=== PATIENT | female | born 1945 | race Caucasian/White ===

== ENCOUNTER 2024-06-29 15:33 | Outpatient (AMB) | payer MEDICARE, MEDICAID, SELFPAY ==
--- NOTE | 2024-06-29 15:35 | MHC.PC.OV ---
Vital Signs 06/29/24 15:51 Height 5 ft 1 in Weight 166 lb 8 oz BMI 31.5 BP 131/60 Blood Pressure Location Rt brachial Position Sitting Respiration 16 Pulse 76 Pulse Source Pulse Oximeter Temp 97.7 F Temp Source Oral Pulse Oximetry (%) 99 Oxygen Delivery Method Room Air Intake Visit Reasons: EST CARE/DM/BLOOD PRESSURE Intake Note: patient here for new patient visit Chief Optometry Service Required: No Is last menstrual period known: No Post menopausal: No Patient : No Allergies amoxicillin Adverse Reaction (Mild, Verified 06/29/24 15:39) Nausea Tobacco use date assessed: 06/29/24 Fall risk assessment: No Falls in past year Last assessed Fall Risk: 06/29/24 Dental Screening Dental Screen Date: 06/29/24 Did you have a dental visit in the last 12 months?: No Did you have a dental problem in the last 6 months where you did not have access to dental care?: No Was dental information given to patient?: Patient has dentist HPI HPI Comments History of Present Illness Details 78-year-old female with a past medical history of type 2 diabetes, nephrolithiasis, CKD stage 3, hyperlipidemia, hypertension, obesity presents to [facility]. Transfer records unavailable at this time. Patient reports her PCP office referred her to [facility] [place] for CKD stage 3, but she does not necessarily want to go to that appointment if it is unnecessary. Patient was told by Urology kidney function has been stable. She does not recall last A1c. She does not check her blood sugars regularly or have a glucometer. She would like 1 sent to the pharmacy. She takes metformin a 1000 mg twice daily for diabetes. Nephrolithiasis-followed by [facility]. She is on allopurinol. Hypertension is treated with valsartan and metoprolol. Her blood pressure today is 131/60. Hyperlipidemia is treated with rosuvastatin and Zetia. Denies history of atherosclerotic disease. She has a murmur on exam. She does not recall being told this in the past. Denies chest pain or shortness of breath. Reports she went to the hospital last year when she thought she was having a heart attack, and the workup was negative. Chest pain did not return. Reports last colonoscopy was a couple years ago. She is unsure if mammo was up-to-date but says this will be in her records. Patient reports immunizations are up-to-date. ROS: Constitutional: No unexplained weight loss, fever, chills, fatigue or night sweats. Eyes: No vision changes, blurry vision, double vision, eye pain, eye redness, eye discharge. Respiratory: No shortness of breath, cough or sputum production. Cardiovascular: No chest pain, chest pressure or chest discomfort. No palpitations or pedal edema. Gastrointestinal: No anorexia, nausea, vomiting or diarrhea. No abdominal pain or blood in stool. Genitourinary: No dysuria, hematuria, urinary frequency. Physical exam: Constitutional: Alert, in no distress. Head: Normocephalic. Eyes: Pupils are equal, round and reactive to light. Extraocular muscles intact. Neck: Supple, Full range of motion. No lymphadenopathy. No palpable thyroid masses. Respiratory: Clear to auscultation. Cardiovascular: S1 S2 regular. 2/6 systolic murmur.. Extremities: Warm and well perfused. 1+ pedal edema bilaterally. Psychiatric: Normal mood and affect [facility] Medical History (Updated 06/29/24 @ 17:26 by CARI Tovar) Obesity Hyperlipidemia Essential hypertension Heart murmur CKD stage 3 due to type 2 diabetes mellitus Type II diabetes mellitus Kidney disease Diabetes High cholesterol High blood pressure Kidney stones Surgical History (Updated 06/29/24 @ 15:56 by Pamela Jain MA) H/O: hysterectomy Family History (Updated 06/29/24 @ 16:00 by Pamela Jain MA) Father High blood pressure Cardiovascular disease Sister Colon cancer Social History Housing: House Patient Tobacco Use Status: Never used Tobacco e-Cigarette/Vaping Use: Never Used Second Hand Smoke Exposure: No service: No Current occupational status: retired Cognitive needs: No Hearing needs: No Vision needs: Yes Questionnaire PHQ-9 Over the last 2 weeks, how often have you been bothered by any of the following problems? 1. Little interest or pleasure in doing things: not at all 2. Feeling down, depressed, or hopeless: not at all 3. Trouble falling or staying asleep, or sleeping too much: several days 4. Feeling tired or having little energy: several days 5. Poor appetite or overeating: several days 6. Feeling bad about yourself - or that you are a failure or have let yourself or your family down: not at all 7. Trouble concentrating on things, such as reading the newspaper or watching television: not at all 8. Moving or speaking so slowly that other people could have noticed. Or the opposite - being so fidgety or restless that you have been moving around a lot more than usual: not at all 9. Thoughts that you would be better off or of hurting yourself in some way: not at all Total score: 3 Depression Screening Interpretation: Negative Depression Screening Done: Yes 72595 - PHQ-9 Billing: Yes Source: Developed by Drs. Prasanna Myles, Irasema Muro, Jethro Barbour and colleagues, with an educational mariela from [employer]. Thrive Questionnaire Date Thrive assessed: 06/29/24 I am a: Patient What is your living situation today?: I have a steady place to live Within the past 12 months, did the food you bought not last and you didn't have the money to get more?: Sometimes True Within the past 12 months, did you worry whether your food would run out before you got money to buy more?: I choose not to answer this question Do you have trouble paying for medicines?: No Do you have trouble getting transportation to medical appointments?: No Do you have trouble paying your heating and electricity bill?: Yes Do you have trouble taking care of your child, family member or friend?: No Do you have trouble with day-to-day activities such as bathing, preparing meals, shopping, managing finances, etc.?: No Are you currently unemployed and looking for a job?: No Are you interested in more education?: No Please select the resources that you would like help with: None Currently or been in a relationship where the following occur: No concerns reported THRIVE Score: 2 AUDIT C Alcohol Use Questionnaire (AUDIT-C) 1. How often do you have a drink containing alcohol?: Never Total Score: 0 Score Reviewed/Action Taken: Yes ERIC-7 AMB Questionnaire ERIC-7 Date ERIC - 7 assessed: 06/29/24 Feeling nervous, anxious, or on edge: 0 = Not at all Not being able to stop or control worryin = Not at all Worrying too much about different things: 0 = Not at all Trouble relaxin = Not at all Being so restless that it is hard to sit still: 0 = Not at all Becoming easily annoyed or irritable: 0 = Not at all Feeling afraid as if something awful might happen: 0 = Not at all Total ERIC-7 score (0-4 normal; 5-9 mild; 10-14 moderate; 15-21 severe): 0 Source: Developed by Drs. Prasanna Myles, Irasema Muro, Jethro Barbour and colleagues, with an educational mariela from [employer]. ERIC-7 Assessment Billing ERIC-7 Assessment Tool: ERIC-7 Assessment 56807 Physical exam (Primary Care) Vital Signs: Last Vital Signs Temp 97.7 F 06/29/24 15:51 Pulse 76 06/29/24 15:51 Resp 16 06/29/24 15:51 BP 131/60 06/29/24 15:51 Pulse Ox 99 06/29/24 15:51 Oxygen Delivery Method Room Air 06/29/24 15:51 BMI result Body Mass Index 31.5 Tobacco/Smoking Status: Tobacco use Status Tobacco use date assessed 06/29/24 06/29/24 15:50 Patient Tobacco Use Status Never used Tobacco 06/29/24 15:50 e-Cigarette/Vaping Use Never Used 06/29/24 15:50 PHQ-9: PHQ-9 Score PHQ-9: Total score 3 06/29/24 16:03 Depression Screening Interpretation: Negative Thrive Assessment: Date of Thrive Assessment Date Thrive assessed 06/29/24 06/29/24 15:37 Currently or been in a relationship where the following occur: No concerns reported Coding Level of Care Code New Pt Level 4 (54774) Complex EM visit Add On G2211 Diagnoses Hyperlipidemia E78.5 Essential hypertension I10 Heart murmur R01.1 CKD stage 3 due to type 2 diabetes mellitus E11.22; N18.30 Type II diabetes mellitus E11.9 Additional Codes ERIC-7 Assessment Billing - ERIC-7 Assessment Tool: ERIC-7 Assessment [id number] ([id number]) PHQ-9 - 20572 - PHQ-9 Billing: Yes ([id number]) Assessment & Plan Assessment & Plan (1) Hyperlipidemia: Code(s): E78.5 - Hyperlipidemia, unspecified Category: Medical Plan: Continue rosuvastatin and Zetia. Check lipid profile. Recommended Mediterranean diet. (2) Essential hypertension: Code(s): I10 - Essential (primary) hypertension Category: Medical Plan: Continue valsartan and metoprolol. Recommended low-sodium diet and avoidance of caffeine. Encouraged weight loss. (3) Heart murmur: Code(s): R01.1 - Cardiac murmur, unspecified Category: Medical Plan: Check echocardiogram. (4) CKD stage 3 due to type 2 diabetes mellitus: Code(s): E11.22 - Type 2 diabetes mellitus with diabetic chronic kidney disease; N18.30 - Chronic kidney disease, stage 3 unspecified Category: Medical Plan: Check urine for microalbumin and renal function test. (5) Type II diabetes mellitus: Code(s): E11.9 - Type 2 diabetes mellitus without complications Category: Medical Plan: Complications of type 2 diabetes reviewed with the patient. Glucometer and supplies sent to pharmacy. Continue metformin a 1000 mg twice daily. Bring glucometer to visits. Check diabetic labs. Recommended annual eye exam. Plan Follow up in 3 months for type 2 diabetes. Orders: Orders Vitamin B12 Today E11.22 - Type 2 diabetes mellitus with diabetic chronic kidney disease, E11.9 - Type 2 diabetes mellitus without complications, N18.30 - Chronic kidney disease, stage 3 unspecified, Z91.89 - Other specified personal risk factors, not elsewhere classified Vitamin D 25-OH (D2 and D3) Today E11.22 - Type 2 diabetes mellitus with diabetic chronic kidney disease, E11.9 - Type 2 diabetes mellitus without complications, M85.80 - Other specified disorders of bone density and structure, unspecified site, N18.30 - Chronic kidney disease, stage 3 unspecified Complete Blood Count no Diff Today E11.22 - Type 2 diabetes mellitus with diabetic chronic kidney disease, E11.9 - Type 2 diabetes mellitus without complications, N18.30 - Chronic kidney disease, stage 3 unspecified Microalbumin, Random (w Creat) Today E11.22 - Type 2 diabetes mellitus with diabetic chronic kidney disease, E11.9 - Type 2 diabetes mellitus without complications, N18.30 - Chronic kidney disease, stage 3 unspecified Hemoglobin A1c Today E11.22 - Type 2 diabetes mellitus with diabetic chronic kidney disease, E11.9 - Type 2 diabetes mellitus without complications, N18.30 - Chronic kidney disease, stage 3 unspecified Lipid Panel Today E11.22 - Type 2 diabetes mellitus with diabetic chronic kidney disease, E11.9 - Type 2 diabetes mellitus without complications, E78.5 - Hyperlipidemia, unspecified, N18.30 - Chronic kidney disease, stage 3 unspecified Comprehensive Met. Panel Today E11.22 - Type 2 diabetes mellitus with diabetic chronic kidney disease, E11.9 - Type 2 diabetes mellitus without complications, N18.30 - Chronic kidney disease, stage 3 unspecified CA echo transthoracic complete Today I10 - Essential (primary) hypertension, R01.1 - Cardiac murmur, unspecified Medications: New lancets ([employer] Delica Plus Lancet) Use as directed to check blood glucose once daily. 100 ea 5RF blood sugar diagnostic ([employer] Verio test strips) Use as directed to check blood glucose once daily. 100 ea 5RF blood-glucose meter ([employer] Verio Flex Meter) Use as directed to check blood glucose once daily for Type II diabetes mellitus. 1 ea 0RF
[2024-06-29 15:51] VITALS: BP 131/60; PULSE 76; RESP 16; TEMP 36.5; O2SAT 99; BMI 31.5
--- OUTSIDE RECORDS SUMMARY | 2024-06-29 17:47 | XMS_ITS | Clinical Summary ---
Author Organization [facility] Address [address] [place] [address] Phone Care Team Providers Care Superintendent Cemetery Name Role Phone Tio Melendez Primary Care Provider Encounters Date Type Department Care Team Description 05/24/2024 Documentation Only [facility] [address] [place] [address] Amy Rosas MA from Last 3 Months Social History Tobacco Use Types Packs/Day Years Used Date Smoking Tobacco: Never Assessed Comments Unknown Sex and Gender Information Value Date Recorded Sex Assigned at Not on file Legal Sex Female 2:33 PM EST Gender Identity Not on file Sexual Orientation Not on file Plan of Treatment Upcoming Encounters Date Type Department Care Team (Late st Contact Info) Description 10/11/2024 4:00 PM EDT Office Visit [facility] [address] [place] [address] [address]imi Almazan [address] [place] [address] Health Maintenance Due Date Last Done Comments Diabetes: Hemoglobin A1C 05/24/2024 Diabetes: Ophthalmology Exam 05/24/2024 Diabetes: Pedal Pulse Checked 05/24/2024 Diabetes: Sensory Foot Exam 05/24/2024 Diabetes: Visual Foot Exam 05/24/2024 Influenza Vaccine (Season Ended) 2024 Pneumococcal Vaccine: 50+ Years Completed 02/01/2020, 05/02/2010, 02/04/2005 Hepatitis B Vaccine Aged Out No longe r eligible based on patient's age to complete this topic Insurance [facility] Member Subscriber Plan / Payer (Ef fective 2024-Present) Name:Toney Lanza Relation to Subscriber:Self Name:Toney Lanza Payer ID:Not on file Type:Not on file Address: [address] [phone] Medicaid [place] Care Teams Superintendent Cemetery Relationship Specialty Start Date End Date Tio Melendez [address] [place] [id number] PCP - General 06/19/24
--- OUTSIDE RECORDS SUMMARY | 2024-06-29 17:47 | XMS_ITS | Encounter Summary ---
Author Organization [facility] [place] Address [address] [place] [address] Phone Care Team Providers Care Social Security Assessor Name Role Phone Tio Melendez Primary Care Provider Encounter Details Date Type Department Care Team (Late st Contact Info) Description 05/24/2024 Documentation Only [facility] [address] [place] [address] [place] [address] [place] [phone] Social History Tobacco Use Types Packs/Day Years Used Date Smoking Tobacco: Never Assessed Comments Unknown Sex and Gender Information Value Date Recorded Sex Assigned at Not on file Legal Sex Female 2:33 PM EST Gender Identity Not on file Sexual Orientation Not on file documented as of this encounter Plan of Treatment Upcoming Encounters Date Type Department Care Team (Late st Contact Info) Description 10/11/2024 4:00 PM EDT Office Visit [facility] [address] [place] [address] Yimi Almazan [address] [place] [phone] documented as of this encounter Visit Diagnoses Not on filedocumented in this encounter Care Teams Social Security Assessor Relationship Specialty Start Date End Date Tio Melendez [address] [place], [place] [phone] PCP - General 06/19/24 documented as of this encounter
== END 2024-06-29 16:20 | disposition home or self-care (01) ==
LOC: HO.HMCFM 15:34
PROVIDERS: PCP Physician Assistant Medical; Visit Provider Physician Assistant Medical
DX: E78.5 Hyperlipidemia, unspecified (principal); I10 Essential (primary) hypertension; R01.1 Cardiac murmur, unspecified; E11.22 Type 2 diabetes mellitus with diabetic chronic kidney disease; N18.30 Chronic kidney disease, stage 3 unspecified

== ENCOUNTER → 2024-06-29 15:33 | Outpatient (BNVA) | payer MEDICARE, MEDICAID, SELFPAY | PROVIDERS: PCP Physician Assistant Medical; Visit Provider Physician Assistant Medical | DX: E11.22 Type 2 diabetes mellitus with diabetic chronic kidney disease (principal); I12.9 Hypertensive chronic kidney disease with stage 1 through stage 4 chronic kidney disease, or unspecified chronic kidney disease; E78.5 Hyperlipidemia, unspecified; N18.30 Chronic kidney disease, stage 3 unspecified; R01.1 Cardiac murmur, unspecified; E66.9 Obesity, unspecified; Z68.31 Body mass index [BMI] 31.0-31.9, adult; Z87.442 Personal history of urinary calculi | CPT/HCPCS: 96127; 99202 ==

== ENCOUNTER 2024-08-28 09:55 | Outpatient (AMB) | payer MEDICARE, SELFPAY ==
--- NOTE | 2024-08-28 10:03 | A.OFFPC_ITS ---
Vital Signs 08/28/24 10:07 Height 5 ft 1 in Weight 160 lb BMI 30.2 BP 132/80 Blood Pressure Location Rt brachial Position Sitting Respiration 16 Pulse 64 Pulse Source Pulse Oximeter Temp 97.9 F Temp Source Temporal Artery Scan Pulse Oximetry (%) 98 Oxygen Delivery Method Room Air Intake Visit Reasons: 2-3 weeks for weight loss evaluation Intake Note: Toney presents in the office today for a diabetes check in. Allergies amoxicillin Adverse Reaction (Mild, Verified 08/28/24 10:05) Nausea Tobacco use date assessed: 08/28/24 Fall risk assessment: No Falls in past year Last assessed Fall Risk: 08/28/24 Dental Screening Dental Screen Date: 08/28/24 Did you have a dental visit in the last 12 months?: No Did you have a dental problem in the last 6 months where you did not have access to dental care?: No Was dental information given to patient?: Patient has dentist HPI HPI Comments History of Present Illness Details 78-year-old female with a past medical h istory of type 2 diabetes, nephrolithiasis, CKD stage 3, hyperlipidemia, hypertension and obesity presents weight loss. She endorses 30 lb weight loss since January 2024. She also notices stools are less warmth and more frequent. She has 2 per day. Her appetite is decreased. She endorses fatigue, but she says she does not always sleep well in his still busy getting things done. She has no dietary restrictions. Denies blood or mucus in stools. No abdominal pain. Reports last colonoscopy was with Dr. Montemayor a few years ago at [facility], and by her report it was normal. She has lost 6 lb since her visit with me in June this year. She did not have her lab work completed yet. We previously discussed that her PCP referred her to [facility] in [place] for CKD stage 3. Patient was not sure she needed to go because she was told by Urology her kidney function has been stable. Type 2 diabetes-she is checking her blood sugars, and they are in the target range aside from 1 that was 185 postprandially. She is taking metformin 1000 mg twice a day. Nephrolithiasis-followed by [facility]. She is on allopurinol and potassium citrate. Hypertension is treated with valsartan and metoprolol. She had an echocardiogram on 08/10/2024 demonstrating left ventricular ejection fraction 55-60%, trace pulmonic regurgitation and mild tricuspid valve regurgitation. Hyperlipidemia is treated with rosuvastatin and Zetia. Denies history of atherosclerotic disease. Denies chest pain or shortness of breath. ROS: Constitutional: No fevers, chills, night sweats . See HPI Eyes: No vision changes, blurry vision, double vision, eye pain, eye redness, eye discharge. Respiratory: No shortness of breath, cough or sputum production. Cardiovascular: No chest pain, chest pressure or chest discomfort. No palpitations or pedal edema. Gastrointestinal: No nausea, vomiting, blood in stools or abdominal pain. See HPI. Genitourinary: No dysuria, hematuria, urinary frequency. Neurologic: No headache, dizziness, syncope Hematologic/Lymphatics: No bleeding or bruising. No painful lymph nodes. Skin: No rash Endocrine: No cold or heat intolerance. No polyuria or polydipsia. Psychiatric: No depression or anxiety Physical exam: Constitutional: Alert, in no distress. Head: Normocephalic. Eyes: Pupils are equal, round and reactive to light. Extraocular muscles intact. Ear, Nose and Throat: Canals clear. TMs normal. Normal nasal mucosa. No nasal discharge. No oral lesions. Neck: Supple, Full range of motion. No lymphadenopathy. No palpable thyroid masses. Respiratory: Clear to auscultation. Cardiovascular: S1 S2 regular. 2/6 systolic murmur Gastrointestinal: Abdomen soft, non-tender, non-distended. Normal bowel sounds. No palpable masses. Neurologic: No focal neurological deficits. Skin: No rashes Extremities: Warm and well perfused. 1+ bilateral pedal edema. Psychiatric: Normal mood and affect [facility] Medical History (Updated 08/28/24 @ 10:37 by CARI Tovar) Mild tricuspid regurgitation Weight loss Obesity Hyperlipidemia Essential hypertension Heart murmur CKD stage 3 due to type 2 diabetes mellitus Type II diabetes mellitus Kidney disease Diabetes High cholesterol High blood pressure Kidney stones Surgical History (Updated 06/29/24 @ 15:56 by Pamela Jain MA) H/O: hysterectomy Family History Father High blood pressure Cardiovascular disease Sister Colon cancer Social History (Updated 08/28/24 @ 10:07 by nAny Doe MA) Housing: House Alcohol intake: never Patient Tobacco Use Status: Never used Tobacco e-Cigarette/Vaping Use: Never Used Second Hand Smoke Exposure: No service: No Current occupational status: retired Cognitive needs: No Hearing needs: No Vision needs: Yes Questionnaire Thrive Questionnaire Date Thrive assessed: 06/29/24 I am a: Patient What is your living situation today?: I have a steady place to live Within the past 12 months, did the food you bought not last and you didn't have the money to get more?: Sometimes True Within the past 12 months, did you worry whether your food would run out before you got money to buy more?: I choose not to answer this question Do you have trouble paying for medicines?: No Do you have trouble getting transportation to medical appointments?: No Do you have trouble paying your heating and electricity bill?: Yes Do you have trouble taking care of your child, family member or friend?: No Do you have trouble with day-to-day activities such as bathing, preparing meals, shopping, managing finances, etc.?: No Are you currently unemployed and looking for a job?: No Are you interested in more education?: No Please select the resources that you would like help with: None Currently or been in a relationship where the following occur: No concerns reported THRIVE Score: 2 ERIC-7 AMB Questionnaire ERIC-7 Date ERIC - 7 assessed: 06/29/24 Source: Developed by Drs. Prasanna Myles, Irasema Muro, Jethro Barbour and colleagues, with an educational mariela from [employer] by [employer]. Physical exam (Primary Care) Vital Signs: Last Vital Signs Temp 97.9 F 08/28/24 10:07 Pulse 64 08/28/24 10:07 Resp 16 08/28/24 10:07 BP 132/80 08/28/24 10:07 Pulse Ox 98 08/28/24 10:07 Oxygen Delivery Method Room Air 08/28/24 10:07 BMI result Body Mass Index 30.2 Tobacco/Smoking Status: Tobacco use Status Tobacco use date assessed 08/28/24 08/28/24 10:10 Patient Tobacco Use Status Never used Tobacco 08/28/24 10:10 e-Cigarette/Vaping Use Never Used 08/28/24 10:10 Thrive Assessment: Date of Thrive Assessment Date Thrive assessed 06/29/24 08/28/24 10:10 Currently or been in a relationship where the following occur: No concerns reported Coding Level of Care Code Est Pt Level 4 (41332) Complex EM visit Add On G2211 Diagnoses Weight loss R63.4 Type II diabetes mellitus E11.9 CKD stage 3 due to type 2 diabetes mellitus E11.22; N18.30 Essential hypertension I10 Hyperlipidemia E78.5 Mild tricuspid regurgitation I07.1 Assessment & Plan Assessment & Plan (1) Weight loss: Code(s): R63.4 - Abnormal weight loss Category: Medical Plan: We discussed the differential for weight loss which is concerning for malignancy, autoimmune disease, colitis, anxiety or depression. Referred urgently to Gastroenterology. Request colonoscopy record. She will have lab work done today. I will request CT abdomen and pelvis, but I need to have her renal function assessed 1st to determine if she can have contrast. (2) Type II diabetes mellitus: Code(s): E11.9 - Type 2 diabetes mellitus without complications Category: Medical Plan: Well-controlled. Continue home glucose monitoring. Continue metformin. (3) CKD stage 3 due to type 2 diabetes mellitus: Code(s): E11.22 - Type 2 diabetes mellitus with diabetic chronic kidney disease; N18.30 - Chronic kidney disease, stage 3 unspecified Category: Medical Plan: Check urine for microalbumin and renal function test. Avoid nephrotoxic medications. (4) Essential hypertension: Code(s): I10 - Essential (primary) hypertension Category: Medical Plan: Continue valsartan and metoprolol. Recommended low-sodium diet and avoidance of caffeine. (5) Hyperlipidemia: Code(s): E78.5 - Hyperlipidemia, unspecified Category: Medical Plan: Continue rosuvastatin and Zetia. Check lipid profile. Recommended Mediterranean diet. (6) Mild tricuspid regurgitation: Code(s): I07.1 - Rheumatic tricuspid insufficiency Category: Medical Plan: Plan to repeat echocardiogram in 1 year or sooner if the patient develops concerning symptoms. Plan Schedule follow up in 2 months. Orders: Orders TSH reflex Free T4 08/28/24 R63.4 - Abnormal weight loss IRON PROFILE 08/28/24 D64.9 - Anemia, unspecified, R63.4 - Abnormal weight loss Amylase 08/28/24 R63.4 - Abnormal weight loss Ferritin 08/28/24 D64.9 - Anemia, unspecified, R63.4 - Abnormal weight loss Complete Blood Count Auto Diff 08/28/24 R63.4 - Abnormal weight loss Lipase 08/28/24 R63.4 - Abnormal weight loss Erythrocyte Sedimentation Rate 08/28/24 E11.22 - Type 2 diabetes mellitus with diabetic chronic kidney disease, E11.9 - Type 2 diabetes mellitus without complications, E78.5 - Hyperlipidemia, unspecified, I10 - Essential (primary) hypertension, N18.30 - Chronic kidney disease, stage 3 unspecified, R63.4 - Abnormal weight loss Referrals Gastroenterology Referral R19.5 - Other fecal abnormalities, R63.4 - Abnormal weight loss
[2024-08-28 10:07] VITALS: BP 132/80; PULSE 64; RESP 16; TEMP 36.6; O2SAT 98; BMI 30.2
--- OUTSIDE RECORDS SUMMARY | 2024-08-28 10:46 | XMS_ITS | Encounter Summary ---
Author Organization [facility], Address [address] [place] [address] Phone Care Team Providers Care Rehab Spec Name Role Phone Tio Melendez Primary Care Provider Encounter Details Date Type Department Care Team (Late st Contact Info) Description 05/24/2024 Documentation Only [facility] [address] [place] [address] [place] [address] [place] [phone] Social History Tobacco Use Types Packs/Day [...] Visit [facility] [address] [place] [address] Yimi Almazan [address] [place] [phone] documented as of this encounter Visit Diagnoses Not on filedocumented in this encounter Care Teams Rehab Spec Relationship Specialty Start Date End Date Tio Melendez [address] [place], [place] [id number] PCP - General 06/19/24 documented as of this encounter
== END 2024-08-28 10:50 | disposition home or self-care (01) ==
LOC: HO.HMCFM 09:56
PROVIDERS: PCP Physician Assistant Medical; Visit Provider Physician Assistant Medical
DX: R63.4 Abnormal weight loss (principal); E11.22 Type 2 diabetes mellitus with diabetic chronic kidney disease; N18.30 Chronic kidney disease, stage 3 unspecified; I10 Essential (primary) hypertension; E78.5 Hyperlipidemia, unspecified; I07.1 Rheumatic tricuspid insufficiency

== ENCOUNTER 2024-08-28 11:06 | Outpatient (REF) | payer MEDICARE, OTHER, SELFPAY ==
[2024-08-28 14:07] LABS: MANUAL DIFF FLAG NO
[2024-08-28 14:29] LABS: Basophils Percent Auto 0.7 % (0-2); Eosinophils Absolute Auto 0.2 X10*3/uL (0.0-0.4); Eosinophils Percent Auto 2.6 % (0-4); Hematocrit 38.1 % (37.0-47.0); Hemoglobin 12.3 g/dl (12.0-16.0); Imm Gran Abs Auto 0.01 X10*3/uL (0.00-0.03); Imm Gran Pct Auto 0.2 % (0.0-0.4); Lymphocytes Absolute Auto 1.7 X10*3/uL (1.2-4.9); Lymphocytes Percent Auto 29.3 % (20-40); Mean Corpuscular HGB Conc 32.3 g/dl (31.0-35.0); Mean Corpuscular Hemoglobin 30.8 pg (27.0-33.0); Mean Corpuscular Volume 95.5 fL (80.0-98.0); Mean Platelet Volume 10.9 fL (9.4-12.3); Monocytes Absolute Auto 0.5 X10*3/uL (0.1-1.2); Monocytes Percent Auto 8.3 % (2-11); Neutrophils Absolute Auto 3.4 x10*3/uL (2.0-8.3); Neutrophils Percent Auto 58.9 % (45-73); Platelet Count 201 X10*3/uL (160-400); Red Blood Count 3.99 X10*6/uL (4.20-5.50); Red Cell Distribution Width 12.6 % (11.0-16.0); White Blood Count 5.8 X10*3/uL (4.8-10.8)
[2024-08-28 14:47] LABS: Estimated Average Glucose 120 mg/dL; Hemoglobin A1c % 5.8 % (<6.0)
[2024-08-28 14:51] LABS: Alanine Aminotransferase 37 U/L (0-31); Albumin Level 4.4 g/dL (3.5-5.0); Alkaline Phosphatase 65 U/L (39-117); Amylase 84 U/L (28-100); Anion Gap 13 (12-20); Aspartate Amino Transferase 33 U/L (5-31); Bilirubin Total 1.2 mg/dL (0.0-1.0); Blood Urea Nitrogen 24 mg/dL (9-16); Calcium 10.5 mg/dL (8.4-10.2); Carbon Dioxide 33 mmol/L (22-29); Chloride 104 mmol/L (96-108); Cholesterol 106 mg/dL (<200); Estimated Glomerular Filt Rate 39; Glucose Random 89 mg/dL (60-115); HDL Cholesterol 40 mg/dL (>40); Iron 66 mcg/dL (30-160); LDL Cholesterol Calculated 39 mg/dL (<100); Lipase 32 U/L (8-78); Percent Iron Saturation 20 % (15-50); Potassium 4.3 mmol/L (3.3-5.1); Sodium 146 mmol/L (135-145); Total Iron Binding Capacity 326 mcg/dL (228-428); Total Protein 7.1 g/dL (6.5-8.0); Triglycerides 138 mg/dL (<150); Unsaturated Iron Binding 260 ug/dL
[2024-08-28 15:08] LABS: Vitamin B12 1531 pg/mL (200-900)
[2024-08-28 15:10] LABS: Ferritin 82 ng/mL (10-250); TSH reflex Free T4 1.65 uIU/mL (0.32-4.0)
[2024-08-28 15:30] LABS: Erythrocyte Sedimentation Rate 22 MM/HR (0-20)
[2024-08-28 18:12] LABS: Creatinine Urine 127.38 mg/dL; Microalbum/Creatinine Ratio Ur 305.3 ug/mg cr (<30)
[2024-09-01 21:54] LABS: Vitamin D 25-OH, D2 <4 ng/mL; Vitamin D 25-OH, D3 52 ng/mL; Vitamin D 25-OH, Total 52 ng/mL (30-100)
== END 2024-08-28 11:07 | disposition home or self-care (01) ==
LOC: HO.WFDLDS 11:06
PROVIDERS: Visit Provider Physician Assistant Medical
DX: R63.4 Abnormal weight loss (principal); Z68.30 Body mass index [BMI] 30.0-30.9, adult; E11.22 Type 2 diabetes mellitus with diabetic chronic kidney disease; I12.9 Hypertensive chronic kidney disease with stage 1 through stage 4 chronic kidney disease, or unspecified chronic kidney disease; N18.30 Chronic kidney disease, stage 3 unspecified; E78.5 Hyperlipidemia, unspecified; I07.1 Rheumatic tricuspid insufficiency; D64.9 Anemia, unspecified; Z79.84 Long term (current) use of oral hypoglycemic drugs; Z79.899 Other long term (current) drug therapy
CPT/HCPCS: 36415; 80053; 80061; 82043; 82150; 82306; 82570; 82607; 82728; 83036; 83540; 83690; 84443; 85025; 85652; 99212

== ENCOUNTER 2024-10-02 09:10 | Outpatient (AMB) | payer MEDICARE, MEDICAID, SELFPAY ==
--- NOTE | 2024-10-02 09:15 | MHC.PC.OV ---
Vital Signs 10/02/24 09:20 Height 5 ft 1 in Weight 160 lb BMI 30.2 BP 122/68 Blood Pressure Location Rt brachial Position Sitting Respiration 16 Pulse 67 Pulse Source Pulse Oximeter Temp 98.6 F Temp Source Temporal Artery Scan Pulse Oximetry (%) 99 Oxygen Delivery Method Room Air Intake Visit Reasons: Type II diabetes Intake Note: Toney presents in the office today for her diabetes. Allergies amoxicillin Adverse Reaction (Mild, Verified 10/02/24 09:18) Nausea Tobacco use date assessed: 10/02/24 Dental Screening Dental Screen Date: 10/02/24 Did you have a dental visit in the last 12 months?: No Did you have a dental problem in the last 6 months where you did not have access to dental care?: No Was dental information given to patient?: Patient declined HPI HPI Comments History of Present Illness Details 78-year-old female with a past medical history of type 2 diabetes, nephrolithiasis, CKD stage 3, hyperlipidemia, hypertension and obesity presents for follow up. At her last appointment she endorsed 30 lb weight loss since January 2024. She also notices stools are less warmth and more frequent. She has 2 per day. Her appetite is decreased. She endorses fatigue, but she says she does not always sleep well in his still busy getting things done. She has no dietary restrictions. Denies blood or mucus in stools. No abdominal pain. Reports last colonoscopy was with Dr. Montemayor a few years ago at [facility], and by her report it was normal. Weight is stable since her visit on 08/28/2024. She had blood work which demonstrated mildly decreased red blood cell count at 3.99 but hemoglobin and hematocrit are normal, sed rate mildly elevated at 22, impaired renal function with creatinine 1.32 and GFR 39 Well-controlled diabetes with hemoglobin A1c 5.8%, mild hypercalcemia at 10.5 (it was found that she was taking a calcium and vitamin-D supplement and additional vitamin-D supplement), mildly elevated liver enzymes and high vitamin B12. She also has microalbuminuria, and she has been referred to Nephrology. She has an appointment scheduled with Dr. Gómez 11/09/2024. Her dose of metformin was reduced to 500 mg twice a day, and she is monitoring her blood sugar. The majority of readings are still within target of 70-180. She had a couple of postprandial readings over 200. She has a CT of the abdomen and pelvis with contrast scheduled tomorrow. She has an appointment with Gastroenterology at [facility] scheduled in October as well. Nephrolithiasis-followed by [facility]. She is on allopurinol and potassium citrate. Hypertension is treated with valsartan and metoprolol. She had an echocardiogram on 08/10/2024 demonstrating left ventricular ejection fraction 55-60%, trace pulmonic regurgitation and mild tricuspid valve regurgitation. Hyperlipidemia is treated with rosuvastatin and Zetia. Denies history of atherosclerotic disease. Denies chest pain or shortness of breath. ROS: Constitutional: No fevers, chills, night sweats . See HPI Eyes: No vision changes, blurry vision, double vision, eye pain, eye redness, eye discharge. Respiratory: No shortness of breath, cough or sputum production. Cardiovascular: No chest pain, chest pressure or chest discomfort. No palpitations or pedal edema. Gastrointestinal: No nausea, vomiting, blood in stools or abdominal pain. See HPI. Genitourinary: No dysuria, hematuria, urinary frequency. Neurologic: No headache, dizziness, syncope Hematologic/Lymphatics: No bleeding or bruising. No painful lymph nodes. Skin: No rash Endocrine: No cold or heat intolerance. No polyuria or polydipsia. Psychiatric: No depression or anxiety Physical exam: Constitutional: Alert, in no distress. Head: Normocephalic. Eyes: Pupils are equal, round and reactive to light. Extraocular muscles intact. Ear, Nose and Throat: Canals clear. TMs normal. Normal nasal mucosa. No nasal discharge. No oral lesions. Neck: Supple, Full range of motion. No lymphadenopathy. No palpable thyroid masses. Respiratory: Clear to auscultation. Cardiovascular: S1 S2 regular. 2/6 systolic murmur Gastrointestinal: Abdomen soft, non-tender, non-distended. Normal bowel sounds. No palpable masses. Neurologic: No focal neurological deficits. Skin: No rashes Extremities: Warm and well perfused. 1+ bilateral pedal edema. Psychiatric: Normal mood and affect [facility] Medical History (Updated 10/02/24 @ 15:01 by CARI Tovar) Hypercalcemia Microalbuminuria Change in stool Mild tricuspid regurgitation Weight loss Obesity Hyperlipidemia Essential hypertension Heart murmur CKD stage 3 due to type 2 diabetes mellitus Type II diabetes mellitus Kidney disease Diabetes High cholesterol High blood pressure Kidney stones Surgical History (Updated 06/29/24 @ 15:56 by Pamela Jain MA) H/O: hysterectomy Family History Father High blood pressure Cardiovascular disease Sister Colon cancer Social History (Updated 10/02/24 @ 09:20 by Anny Doe MA) Housing: House Alcohol intake: never Patient Tobacco Use Status: Never used Tobacco e-Cigarette/Vaping Use: Never Used Second Hand Smoke Exposure: No service: No Current occupational status: retired Cognitive needs: No Hearing needs: No Vision needs: Yes Questionnaire Thrive Questionnaire Date Thrive assessed: 06/29/24 I am a: Patient What is your living situation today?: I have a steady place to live Within the past 12 months, did the food you bought not last and you didn't have the money to get more?: Sometimes True Within the past 12 months, did you worry whether your food would run out before you got money to buy more?: I choose not to answer this question Do you have trouble paying for medicines?: No Do you have trouble getting transportation to medical appointments?: No Do you have trouble paying your heating and electricity bill?: Yes Do you have trouble taking care of your child, family member or friend?: No Do you have trouble with day-to-day activities such as bathing, preparing meals, shopping, managing finances, etc.?: No Are you currently unemployed and looking for a job?: No Are you interested in more education?: No Please select the resources that you would like help with: None Currently or been in a relationship where the following occur: No concerns reported THRIVE Score: 2 ERIC-7 AMB Questionnaire ERIC-7 Date ERIC - 7 assessed: 06/29/24 Source: Developed by Drs. Prasanna Myles, Irasema Muro, Jethro Barbour and colleagues, with an educational mariela from [employer]. Physical exam (Primary Care) Vital Signs: Last Vital Signs Temp 98.6 F 10/02/24 09:20 Pulse 67 10/02/24 09:20 Resp 16 10/02/24 09:20 BP 122/68 10/02/24 09:20 Pulse Ox 99 10/02/24 09:20 Oxygen Delivery Method Room Air 10/02/24 09:20 BMI result Body Mass Index 30.2 Tobacco/Smoking Status: Tobacco use Status Tobacco use date assessed 10/02/24 10/02/24 09:24 Patient Tobacco Use Status Never used Tobacco 10/02/24 09:20 e-Cigarette/Vaping Use Never Used 10/02/24 09:20 Thrive Assessment: Date of Thrive Assessment Date Thrive assessed 06/29/24 10/02/24 09:17 Currently or been in a relationship where the following occur: No concerns reported Coding Level of Care Code Est Pt Level 5 (20840) Complex EM visit Add On G2211 Diagnoses Weight loss R63.4 Type II diabetes mellitus E11.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 Diabetes mellitus complication status: with kidney complications Diabetes mellitus complication detail: with chronic kidney disease CKD stage 3 due to type 2 diabetes mellitus E11.22; N18.30 Essential hypertension I10 Hyperlipidemia E78.5 Mild tricuspid regurgitation I07.1 Hypercalcemia E83.52 Time Spent (min) 45 Comment Direct patient care, chart review, completing documentation Assessment & Plan Assessment & Plan (1) Weight loss: Code(s): R63.4 - Abnormal weight loss Category: Medical Plan: We discussed the differential for weight loss which is concerning for malignancy, autoimmune disease, colitis, anxiety or depression. She has an appointment scheduled for Gastroenterology and her CAT scan is tomorrow. (2) Type II diabetes mellitus: Code(s): E11.9 - Type 2 diabetes mellitus without complications Category: Medical Qualifiers: Diabetes mellitus care home insulin use: without care home use Diabetes mellitus complication status: with kidney complications Diabetes mellitus complication detail: with chronic kidney disease Plan: Continue home glucose monitoring. Continue metformin 500 mg twice daily for now. She would be a good candidate for Jardiance given renal complications but we will hold off on further discussion as she is feeling a little overwhelmed with needing to get the CT and appointment was specialists done. (3) CKD stage 3 due to type 2 diabetes mellitus: Code(s): E11.22 - Type 2 diabetes mellitus with diabetic chronic kidney disease; N18.30 - Chronic kidney disease, stage 3 unspecified Category: Medical Plan: Avoid nephrotoxic medications. She has an upcoming appointment with Nephrology for a consult. (4) Essential hypertension: Code(s): I10 - Essential (primary) hypertension Category: Medical Plan: Continue valsartan and metoprolol. Recommended low-sodium diet and avoidance of caffeine. (5) Hyperlipidemia: Code(s): E78.5 - Hyperlipidemia, unspecified Category: Medical Plan: Continue rosuvastatin and Zetia. (6) Mild tricuspid regurgitation: Code(s): I07.1 - Rheumatic tricuspid insufficiency Category: Medical Plan: Plan to repeat echocardiogram in 1 year or sooner if the patient develops concerning symptoms. (7) Hypercalcemia: Code(s): E83.52 - Hypercalcemia Category: Medical Plan: She stopped taking her calcium supplement. She is taking vitamin-D. Check labs today. Plan Schedule a follow up in 8 weeks. Orders: Orders Vitamin B12 Today E11.22 - Type 2 diabetes mellitus with diabetic chronic kidney disease, E83.52 - Hypercalcemia, N18.30 - Chronic kidney disease, stage 3 unspecified, N20.0 - Calculus of kidney, Z91.89 - Other specified personal risk factors, not elsewhere classified Vitamin D 25-OH (D2 and D3) Today E11.22 - Type 2 diabetes mellitus with diabetic chronic kidney disease, E83.52 - Hypercalcemia, N18.30 - Chronic kidney disease, stage 3 unspecified, N20.0 - Calculus of kidney Basic Metabolic Panel Today E11.22 - Type 2 diabetes mellitus with diabetic chronic kidney disease, E83.52 - Hypercalcemia, N18.30 - Chronic kidney disease, stage 3 unspecified, N20.0 - Calculus of kidney
[2024-10-02 09:20] VITALS: BP 122/68; PULSE 67; RESP 16; TEMP 37; O2SAT 99; BMI 30.2
--- OUTSIDE RECORDS SUMMARY | 2024-10-02 09:29 | XMS_ITS | Encounter Summary ---
Author Organization [facility] Address [address] [place] [address] Phone Care Team Providers Care Search Developer Name Role Phone Toya Mckinney PA-C Primary Care Provider [phone] Encounter Details Date Type Department Care Team (Late st Contact Info) Description 05/24/2024 Documentation Only [facility] [address] [place] [address] [place], [place] [address] [place] [address] Social History Tobacco Use Types Packs/Day [...] Visit [facility] [address] [place] [address] Yimi Almazan [address] [place] [phone] 11/09/2024 2:45 PM EDT Office Visit [facility] [address] [place] [address] Caden Gómez MD [address] [phone] documented as of this encounter Visit Diagnoses Not on filedocumented in this encounter Care Teams Search Developer Relationship Specialty Start Date End Date Toya Mckinney PA-C [address] [place] [id number] PCP - General Internal Medicine 09/10/24 documented as of this encounter
== END 2024-10-02 09:54 | disposition home or self-care (01) ==
LOC: HO.HMCFM 09:11
PROVIDERS: PCP Physician Assistant Medical; Visit Provider Physician Assistant Medical
DX: I12.9 Hypertensive chronic kidney disease with stage 1 through stage 4 chronic kidney disease, or unspecified chronic kidney disease (principal); E11.22 Type 2 diabetes mellitus with diabetic chronic kidney disease; N18.30 Chronic kidney disease, stage 3 unspecified; R63.4 Abnormal weight loss; E78.5 Hyperlipidemia, unspecified; I07.1 Rheumatic tricuspid insufficiency; E83.52 Hypercalcemia

== ENCOUNTER → 2024-10-02 09:10 | Outpatient (BNVA) | payer MEDICARE, MEDICAID, SELFPAY | PROVIDERS: PCP Physician Assistant Medical; Visit Provider Physician Assistant Medical | DX: E11.22 Type 2 diabetes mellitus with diabetic chronic kidney disease (principal); I12.9 Hypertensive chronic kidney disease with stage 1 through stage 4 chronic kidney disease, or unspecified chronic kidney disease; N18.30 Chronic kidney disease, stage 3 unspecified; R63.4 Abnormal weight loss; E78.5 Hyperlipidemia, unspecified; I07.1 Rheumatic tricuspid insufficiency; E83.52 Hypercalcemia; E66.9 Obesity, unspecified; Z68.30 Body mass index [BMI] 30.0-30.9, adult; Z79.899 Other long term (current) drug therapy | CPT/HCPCS: 99212 ==

== ENCOUNTER 2024-10-02 10:30 | Outpatient (REF) | payer MEDICARE, MEDICAID, SELFPAY ==
[2024-10-02 12:28] LABS: Anion Gap 9 (12-20); Blood Urea Nitrogen 22 mg/dL (9-16); Calcium 9.9 mg/dL (8.4-10.2); Carbon Dioxide 30 mmol/L (22-29); Chloride 109 mmol/L (96-108); Estimated Glomerular Filt Rate 43; Potassium 4.2 mmol/L (3.3-5.1); Sodium 144 mmol/L (135-145)
[2024-10-02 12:56] LABS: Vitamin B12 1233 pg/mL (200-900)
[2024-10-06 17:47] LABS: Vitamin D 25-OH, D2 <4 ng/mL; Vitamin D 25-OH, D3 43 ng/mL; Vitamin D 25-OH, Total 43 ng/mL (30-100)
== END 2024-10-02 10:31 | disposition home or self-care (01) ==
LOC: HO.WFDLDS 10:30
PROVIDERS: Visit Provider Physician Assistant Medical
DX: E11.22 Type 2 diabetes mellitus with diabetic chronic kidney disease (principal); N18.30 Chronic kidney disease, stage 3 unspecified; N20.0 Calculus of kidney; E83.52 Hypercalcemia; Z91.89 Other specified personal risk factors, not elsewhere classified
CPT/HCPCS: 36415; 80048; 82306; 82607

== ENCOUNTER 2024-11-27 10:15 | Outpatient (REF) | payer MEDICARE, MEDICAID, SELFPAY ==
[2024-11-27 15:03] LABS: MANUAL DIFF FLAG NO
[2024-11-27 15:30] LABS: Hematocrit 37.0 % (37.0-47.0); Hemoglobin 11.9 g/dl (12.0-16.0); Imm Gran Abs Auto 0.01 X10*3/uL (0.00-0.03); Imm Gran Pct Auto 0.2 % (0.0-0.4); Lymphocytes Absolute Auto 1.5 X10*3/uL (1.2-4.9); Mean Corpuscular HGB Conc 32.2 g/dl (31.0-35.0); Mean Corpuscular Hemoglobin 30.3 pg (27.0-33.0); Mean Corpuscular Volume 94.1 fL (80.0-98.0); NRBC Abs Auto 0.000 X10*3/uL (0.0-0.012); NRBC Pct Auto 0.0 /100WBC (0.0-0.2); Platelet Count 197 X10*3/uL (160-400); Red Blood Count 3.93 X10*6/uL (4.20-5.50); White Blood Count 5.7 X10*3/uL (4.8-10.8)
[2024-11-27 15:43] LABS: Alanine Aminotransferase 55 U/L (0-31); Albumin Level 4.0 g/dL (3.5-5.0); Alkaline Phosphatase 66 U/L (39-117); Anion Gap 12 (12-20); Aspartate Amino Transferase 44 U/L (5-31); Blood Urea Nitrogen 32 mg/dL (9-16); Calcium 9.6 mg/dL (8.4-10.2); Carbon Dioxide 29 mmol/L (22-29); Chloride 109 mmol/L (96-108); Estimated Glomerular Filt Rate 41; Potassium 4.8 mmol/L (3.3-5.1); Sodium 145 mmol/L (135-145); Total Protein 6.7 g/dL (6.5-8.0)
[2024-11-27 16:15] LABS: Vitamin B12 915 pg/mL (200-900)
[2024-12-01 17:38] LABS: Vitamin D 25-OH, D2 <4 ng/mL; Vitamin D 25-OH, D3 42 ng/mL; Vitamin D 25-OH, Total 42 ng/mL (30-100)
== END 2024-11-27 10:16 | disposition home or self-care (01) ==
LOC: HO.WFDLDS 10:15
PROVIDERS: PCP Physician Assistant Medical; Visit Provider Physician Assistant Medical
DX: R63.4 Abnormal weight loss (principal); E11.22 Type 2 diabetes mellitus with diabetic chronic kidney disease; I12.9 Hypertensive chronic kidney disease with stage 1 through stage 4 chronic kidney disease, or unspecified chronic kidney disease; N18.30 Chronic kidney disease, stage 3 unspecified; E83.52 Hypercalcemia; M85.80 Other specified disorders of bone density and structure, unspecified site; R73.9 Hyperglycemia, unspecified; I07.1 Rheumatic tricuspid insufficiency; E78.5 Hyperlipidemia, unspecified; Z91.89 Other specified personal risk factors, not elsewhere classified; Z79.84 Long term (current) use of oral hypoglycemic drugs; Z79.899 Other long term (current) drug therapy
CPT/HCPCS: 36415; 80053; 82306; 82607; 83036; 84443; 85025; 99212

== ENCOUNTER 2024-11-27 10:15 | Outpatient (AMB) | payer MEDICARE, MEDICAID, SELFPAY ==
--- NOTE | 2024-11-27 10:24 | A.OFFPC_ITS ---
Vital Signs 11/27/24 10:31 Height 5 ft 1 in Weight 159 lb 4 oz BMI 30.1 BP 128/84 Blood Pressure Location Rt brachial Position Sitting Respiration 16 Pulse 63 Pulse Source Pulse Oximeter Temp 98.2 F Temp Source Temporal Artery Scan Pulse Oximetry (%) 98 Oxygen Delivery Method Room Air Intake Visit Reasons: 30 minute follow up weight loss, diabetes, HTN, CK Intake Note: Toney presents in the office today for a follow up to weight loss, diabetes and hypertension. Allergies amoxicillin Adverse Reaction (Mild, Verified 11/27/24 10:27) Nausea Medication List - Last Reconciled 11/28/24 by CARI Tovar allopurinol 100 mg PO DAILY blood sugar diagnostic (Bgiftyuch Verio test strips) Use as directed to check blood glucose once daily. blood-glucose meter ([facility] OpenTouch Verio Flex Meter) Use as directed to check blood glucose once daily for Type II diabetes mellitus. cholecalciferol (vitamin D3) 25 mcg PO DAILY ezetimibe 10 mg PO DAILY [id number] Every other day. lancets (Bgiftyuch Delica Plus Lancet) Use as directed to check blood glucose once daily. metformin 500 mg PO BID metoprolol succinate ER 100 mg PO DAILY potassium citrate ER 10 mEq PO BID rosuvastatin 40 mg PO DAILY valsartan 320 mg PO DAILY Tobacco use date assessed: 11/27/24 Dental Screening Dental Screen Date: 11/27/24 Did you have a dental visit in the last 12 months?: No Did you have a dental problem in the last 6 months where you did not have access to dental care?: No Was dental information given to patient?: Patient has dentist HPI HPI Comments History of Present Illness Details 78-year-old female with a past medical h istory of type 2 diabetes, nephrolithiasis, CKD stage 3, hyperlipidemia, hypertension and obesity presents for follow up. Patient was evaluated by [facility] to review her CT scan and weight loss. The CT scan from September 2024 showed bile duct pneumobilia. She had u/s of the liver this past Wednesday. It was determined she does not need a colonoscopy/EGD. She initially reported 30 lb weight loss since January 2024. She recalls today that she had a possible GI virus at that time, and she got used to eating smaller amounts of food. She also found that she could lose weight when she ate smaller portions which benefitted her other health conditions. She denies depression and anxiety. Weight loss has slowed down now. Her appetite is okay. She does not usually eat a full 3 meals per day, but she usually eats 2 meals per day. Denies abdominal pain, nausea, vomiting, diarrhea and blood in stools. She has controlled type 2 diabetes. She is taking metformin 500 mg twice daily. She has not been checking blood sugars because she needs test strips. The last refill was too early, and her insurance only covers glucose monitoring once daily. Hyperlipidemia is treated with rosuvastatin 40 mg daily and Zetia 10 mg daily. Hypercalcemia resolved after discontinuing supplements [id number]. B12 was high so she is taking this every other day now. CKD stage 3, microalbuminuria-Dr. Gómez. She has another imaging study in April 2025 for her kidneys. History of Nephrolithiasis. She is on allopurinol and potassium citrate. Hypertension is treated with valsartan and metoprolol. She had an echocardiogram on 08/10/2024 demonstrating left ventricular ejection fraction 55-60%, trace pulmonic regurgitation and mild tricuspid valve regurgitation. ROS: Constitutional: Denies fevers, chills, night sweats and fatigue. See HPI. Eyes: No vision changes, blurry vision, double vision, eye pain, eye redness, eye discharge. Respiratory: No shortness of breath, cough or sputum production. Cardiovascular: No chest pain, chest pressure or chest discomfort. No palpitations or pedal edema. Gastrointestinal: No nausea, vomiting, blood in stools or abdominal pain. See HPI. Genitourinary: No dysuria, hematuria, urinary frequency. Neurologic: No headache, dizziness, syncope Hematologic/Lymphatics: No bleeding or bruising. No painful lymph nodes. Skin: No rash Endocrine: No cold or heat intolerance. No polyuria or polydipsia. Psychiatric: Denies depression and anxiety Physical exam: Constitutional: Alert, in no distress. Eyes: Pupils are equal, round and reactive to light. Extraocular muscles intact. Ear, Nose and Throat: Canals clear. TMs normal. Normal nasal mucosa. No nasal discharge. No oral lesions. Neck: Supple, Full range of motion. No lymphadenopathy. No palpable thyroid masses. Respiratory: Clear to auscultation. Cardiovascular: S1 S2 regular. 2/6 systolic murmur Gastrointestinal: Abdomen soft, non-tender, non-distended. Normal bowel sounds. No palpable masses. Neurologic: No focal neurological deficits. Skin: No rashes Extremities: Warm and well perfused. 1+ bilateral pedal edema. Psychiatric: Normal mood and affect [facility] Medical History (Updated 10/02/24 @ 15:01 by CARI Tovar) Hypercalcemia Microalbuminuria Change in stool Mild tricuspid regurgitation Weight loss Obesity Hyperlipidemia Essential hypertension Heart murmur CKD stage 3 due to type 2 diabetes mellitus Type II diabetes mellitus Kidney disease Diabetes High cholesterol High blood pressure Kidney stones Surgical History (Updated 06/29/24 @ 15:56 by Pamela Jain MA) H/O: hysterectomy Family History Father High blood pressure Cardiovascular disease Sister Colon cancer Social History (Updated 11/27/24 @ 10:31 by Anny Doe MA) Housing: House Alcohol intake: never Patient Tobacco Use Status: Never used Tobacco e-Cigarette/Vaping Use: Never Used Second Hand Smoke Exposure: No service: No Current occupational status: retired Cognitive needs: No Hearing needs: No Vision needs: Yes Questionnaire Thrive Questionnaire Date Thrive assessed: 06/29/24 I am a: Patient What is your living situation today?: I have a steady place to live Within the past 12 months, did the food you bought not last and you didn't have the money to get more?: Sometimes True Within the past 12 months, did you worry whether your food would run out before you got money to buy more?: I choose not to answer this question Do you have trouble paying for medicines?: No Do you have trouble getting transportation to medical appointments?: No Do you have trouble paying your heating and electricity bill?: Yes Do you have trouble taking care of your child, family member or friend?: No Do you have trouble with day-to-day activities such as bathing, preparing meals, shopping, managing finances, etc.?: No Are you currently unemployed and looking for a job?: No Are you interested in more education?: No Please select the resources that you would like help with: None Currently or been in a relationship where the following occur: No concerns reported THRIVE Score: 2 ERIC-7 AMB Questionnaire ERIC-7 Date ERIC - 7 assessed: 06/29/24 Source: Developed by DrsAntolin Myles, Irasema Muro, Jethro Barbour and colleagues, with an educational mariela from [employer]. Physical exam (Primary Care) Vital Signs: Last Vital Signs Temp 98.2 F 11/27/24 10:31 Pulse 63 11/27/24 10:31 Resp 16 11/27/24 10:31 BP 128/84 11/27/24 10:31 Pulse Ox 98 11/27/24 10:31 Oxygen Delivery Method Room Air 11/27/24 10:31 BMI result Body Mass Index 30.1 Tobacco/Smoking Status: Tobacco use Status Tobacco use date assessed 11/27/24 11/27/24 10:34 Patient Tobacco Use Status Never used Tobacco 11/27/24 10:31 e-Cigarette/Vaping Use Never Used 11/27/24 10:31 Thrive Assessment: Date of Thrive Assessment Date Thrive assessed 06/29/24 11/27/24 10:25 Currently or been in a relationship where the following occur: No concerns reported Coding Level of Care Code Est Pt Level 4 (77876) Complex EM visit Add On G2211 Diagnoses Weight loss R63.4 Type II diabetes mellitus E11.9 Diabetes mellitus complication detail: with chronic kidney disease Diabetes mellitus complication status: with kidney complications Diabetes mellitus buttermaker continuous churn insulin use: without senior living use CKD stage 3 due to type 2 diabetes mellitus E11.22; N18.30 Essential hypertension I10 Hyperlipidemia E78.5 Mild tricuspid regurgitation I07.1 Assessment & Plan Assessment & Plan (1) Weight loss: Code(s): R63.4 - Abnormal weight loss Category: Medical Plan: Weight loss has slowed. Encouraged trial of ensure or Glucerna shakes. CT scan did not show evidence of malignancy however there was bile duct pneumobilia. She saw Gastroenterology and had a follow up ultrasound of the abdomen on Wednesday. She is waiting to hear about the results. We will request the notes. (2) Type II diabetes mellitus: Code(s): E11.9 - Type 2 diabetes mellitus without complications Category: Medical Qualifiers: Diabetes mellitus complication detail: with chronic kidney disease Diabetes mellitus complication status: with kidney complications Diabetes mellitus buttermaker continuous churn insulin use: without buttermaker continuous churn use Plan: Continue home glucose monitoring. Continue metformin 500 mg twice daily for now. She would be a good candidate for Jardiance given renal complications, but she declined this again today. (3) CKD stage 3 due to type 2 diabetes mellitus: Code(s): E11.22 - Type 2 diabetes mellitus with diabetic chronic kidney disease; N18.30 - Chronic kidney disease, stage 3 unspecified Category: Medical Plan: Stable. Followed by Nephrology. Continue valsartan. Declined Jardiance. (4) Essential hypertension: Code(s): I10 - Essential (primary) hypertension Category: Medical Plan: Continue valsartan and metoprolol. Recommended low-sodium diet and avoidance of caffeine. (5) Hyperlipidemia: Code(s): E78.5 - Hyperlipidemia, unspecified Category: Medical Plan: Continue rosuvastatin and Zetia. (6) Mild tricuspid regurgitation: Code(s): I07.1 - Rheumatic tricuspid insufficiency Category: Medical Plan: Plan to repeat echocardiogram in 1 year or sooner if the patient develops concerning symptoms. Plan Follow up in 3 months. Orders: Orders Hemoglobin A1c 11/27/24 E11.22 - Type 2 diabetes mellitus with diabetic chronic kidney disease, E11.9 - Type 2 diabetes mellitus without complications, E83.52 - Hypercalcemia, I10 - Essential (primary) hypertension, N18.30 - Chronic kidney disease, stage 3 unspecified, R63.4 - Abnormal weight loss, R73.9 - Hyperglycemia, unspecified Vitamin B12 11/27/24 E11.22 - Type 2 diabetes mellitus with diabetic chronic kidney disease, E11.9 - Type 2 diabetes mellitus without complications, E83.52 - Hypercalcemia, I10 - Essential (primary) hypertension, N18.30 - Chronic kidney disease, stage 3 unspecified, R63.4 - Abnormal weight loss, Z91.89 - Other specified personal risk factors, not elsewhere classified TSH reflex Free T4 11/27/24 E11.22 - Type 2 diabetes mellitus with diabetic chronic kidney disease, E11.9 - Type 2 diabetes mellitus without complications, E83.52 - Hypercalcemia, I10 - Essential (primary) hypertension, N18.30 - Chronic kidney disease, stage 3 unspecified, R63.4 - Abnormal weight loss Comprehensive Met. Panel 11/27/24 E11.22 - Type 2 diabetes mellitus with diabetic chronic kidney disease, E11.9 - Type 2 diabetes mellitus without complications, E83.52 - Hypercalcemia, I10 - Essential (primary) hypertension, N18.30 - Chronic kidney disease, stage 3 unspecified, R63.4 - Abnormal weight loss Complete Blood Count Auto Diff 11/27/24 E11.22 - Type 2 diabetes mellitus with diabetic chronic kidney disease, E11.9 - Type 2 diabetes mellitus without complications, E83.52 - Hypercalcemia, I10 - Essential (primary) hypertension, N18.30 - Chronic kidney disease, stage 3 unspecified, R63.4 - Abnormal weight loss Vitamin D 25-OH (D2 and D3) 11/27/24 E83.52 - Hypercalcemia, M85.80 - Other specified disorders of bone density and structure, unspecified site Medications: Changed From lancets (OneTouch Delica Plus Lancet) Use as directed to check blood glucose twice daily. 100 ea 5RF To lancets (OneTouch Delica Plus Lancet) Use as directed to check blood glucose once daily. 100 ea 5RF Refilled blood sugar diagnostic (OneTouch Verio test strips) Use as directed to check blood glucose once daily. 100 ea 5RF E11.9 - Type 2 diabetes mellitus without complications
[2024-11-27 10:31] VITALS: BP 128/84; PULSE 63; RESP 16; TEMP 36.8; O2SAT 98; BMI 30.1
--- OUTSIDE RECORDS SUMMARY | 2024-11-27 12:11 | XMS_ITS | Encounter Summary ---
Author Organization [facility], Address [address] [place] [address] Phone Care Team Providers Care Bag Tester Name Role Phone Toya Mckinney PA-C Primary Care Provider [phone] Encounter Details Date Type Department Care Team (Late st Contact Info) Description 05/24/2024 Documentation Only [facility], [address] [place] [address] [place], [place] [address] [place] [address] Social History Tobacco Use Types [...] Care Team (Late st Contact Info) Description 05/10/2025 1:45 PM EST Office Visit [facility] [address] [place] [address] Caden Gómez MD [id number] [phone] documented as of this encounter Visit Diagnoses Not on filedocumented in this encounter Care Teams Bag Tester Relationship Specialty Start Date End Date Toya Mckinney PA-C [address] [place] [address] [phone] PCP - General Internal Medicine 09/10/24 documented as of this encounter
--- OUTSIDE RECORDS SUMMARY | 2024-11-27 12:11 | XMS_ITS ---
Author Name [facility] Organization Unknown Care Team Organization Name Specialty Phone Email Start Date End Da te [facility] Jennifer Che MD Primary Care 01/27/2022 11/08/2023
--- OUTSIDE RECORDS SUMMARY | 2024-11-27 12:11 | XMS_ITS | Clinical Summary ---
Author Organization [facility] Address [address] [place] [address] Phone Care Team Providers Care Tour Operator Name Role Phone Toya Mckinney PA-C Primary Care Provider [phone] Allergies Active Allergy Reactions Criticality Noted Date Comments Amoxicillin Nausea 11/08/2024 Medications ezetimibe (ZETIA) 10 MG tablet Take 10 mg by mouth 1 (one) time each day Active rosuvastatin (CRESTOR) 5 MG tablet Take 5 mg by mouth 1 (one) time each day Active METOPROLOL SUCCINATE PO Take by mouth Active VALSARTAN PO Take by mouth Active ALLOPURINOL PO Take by mouth Active metFORMIN (GLUCOPHAGE) 500 MG tablet Take 500 mg by mouth in the morning and 500 mg in the evening. Take with meals. Active cyanocobalamin (VITAMIN B-12) 1000 MCG tablet Take 1,000 mcg by mouth 1 (one) time each day Active citric acid-potassium citrate (POLYCITRA) 1100-334 MG/5ML solution Take by mouth in the morning and at noon and in the evening. Take with meals. Active Cholecalcifero l (Vitamin D3) 25 MCG (1000 UT) capsule Take by mouth Active citric acid-potassium citrate (POLYCITRA) 1100-334 MG/5ML solution Take by mouth in the morning and at noon and in the evening. Take with meals. 11/10/19 25 Discontinued Active Problems Problem Noted Date Diagnosed Date Hypertension Nephrolithiasis Stage 3 chronic kidney disease Type 2 diabetes mellitus Encounters Date Type Department Care Team Description 11/09/2024 2:45 PM EDT Office Visit [facility] [address] [place] [address] Caden Gómez MD Stage 3b chronic kidney disease (HCC) (Primary Dx); Nephrolithiasis; Hypertension; Type 2 diabetes mellitus with diabetic chronic kidney disease (HCC) from Last 3 Months Family History Medical History Relation Comments Heart disease Father Hypertension Father Colon cancer Sister Relation Status Comments Father Sister Social History Tobacco Use Types Packs/Day Years Used Date Smoking Tobacco: Never Smokeless Tobacco: Never Tobacco Cessation:Counseling Given: Not Answered Alcohol Use Standard Drinks/Week Comments Never 0 (1 standard drink = 0.6 oz pur e alcohol) Comments Unknown Sex and Gender Information Value Date Recorded Sex Assigned at Not on file Legal Sex Female 2:33 PM EST Gender Identity Not on file Sexual Orientation Not on file Last Filed Vital Signs Vital Sign Reading Time Taken Comments Blood Pressure - - Pulse 63 11/09/2024 2:34 PM EDT Temperature - - Respiratory Rate - - Oxygen Saturation - - Inhaled Oxygen Concentration - - Weight 72.6 kg (160 lb) 11/09/2024 2:34 PM EDT Height - - Body Mass Index - - Plan of Treatment Upcoming Encounters Date Type Department Care Team (Late st Contact Info) Description 05/10/2025 1:45 PM EST Office Visit [facility] [address] [place] [phone] Caden Gómez MD [address] [place] [phone] Health Maintenance Due Date Last Done Comments Diabetes: Hemoglobin A1C 05/24/2024 Diabetes: Ophthalmology Exam 05/24/2024 Diabetes: Pedal Pulse Checked 05/24/2024 Diabetes: Sensory Foot Exam 05/24/2024 Diabetes: Visual Foot Exam 05/24/2024 Influenza Vaccine (#1) 2024 Pneumococcal Vaccine: 50+ Years Completed 02/01/2020, 05/02/2010, 02/04/2005 Hepatitis B Vaccine Aged Out No longe r eligible based on patient's age to complete this topic Insurance [facility] Medicaid [place] [facility] Care Teams Tour Operator Relationship Specialty Start Date End Date Toya Mckinney PA-C [address] [place] [id number] PCP - General Internal Medicine 09/10/24
== END 2024-11-27 11:12 | disposition home or self-care (01) ==
LOC: HO.HMCFM 10:16
PROVIDERS: PCP Physician Assistant Medical; Visit Provider Physician Assistant Medical
DX: R63.4 Abnormal weight loss (principal); E11.22 Type 2 diabetes mellitus with diabetic chronic kidney disease; N18.30 Chronic kidney disease, stage 3 unspecified; I10 Essential (primary) hypertension; E78.5 Hyperlipidemia, unspecified; I07.1 Rheumatic tricuspid insufficiency

== ENCOUNTER 2025-03-01 08:52 | Outpatient (REF) | payer MEDICARE, MEDICAID, SELFPAY ==
[2025-03-01 15:19] LABS: Anion Gap 12 (12-20); Blood Urea Nitrogen 26 mg/dL (9-16); Calcium 10.3 mg/dL (8.4-10.2); Carbon Dioxide 30 mmol/L (22-29); Chloride 106 mmol/L (96-108); Cholesterol 105 mg/dL (<200); Estimated Glomerular Filt Rate 36; HDL Cholesterol 44 mg/dL (>40); Potassium 4.7 mmol/L (3.3-5.1); Sodium 143 mmol/L (135-145); Triglycerides 84 mg/dL (<150)
[2025-03-01 15:31] LABS: Microalbum/Creatinine Ratio Ur 257.3 ug/mg cr (<30)
[2025-03-01 15:42] LABS: Vitamin B12 1060 pg/mL (200-900)
[2025-03-07 06:42] LABS: Vitamin D 25-OH, D2 <4 ng/mL; Vitamin D 25-OH, D3 38 ng/mL; Vitamin D 25-OH, Total 38 ng/mL (30-100)
== END 2025-03-01 08:53 | disposition home or self-care (01) ==
LOC: HO.WFDLDS 08:52
PROVIDERS: PCP Physician Assistant Medical; Visit Provider Physician Assistant Medical
DX: E11.22 Type 2 diabetes mellitus with diabetic chronic kidney disease (principal); I12.9 Hypertensive chronic kidney disease with stage 1 through stage 4 chronic kidney disease, or unspecified chronic kidney disease; N18.30 Chronic kidney disease, stage 3 unspecified; E11.65 Type 2 diabetes mellitus with hyperglycemia; E78.5 Hyperlipidemia, unspecified; R63.4 Abnormal weight loss; E78.49 Other hyperlipidemia; I07.1 Rheumatic tricuspid insufficiency; Z91.89 Other specified personal risk factors, not elsewhere classified; Z79.84 Long term (current) use of oral hypoglycemic drugs; Z79.899 Other long term (current) drug therapy
CPT/HCPCS: 36415; 80048; 80061; 82043; 82306; 82570; 82607; 83036; 99212

== ENCOUNTER 2025-03-01 08:52 | Outpatient (AMB) | payer MEDICARE, MEDICAID, SELFPAY ==
--- NOTE | 2025-03-01 08:58 | MHC.PC.OV ---
Vital Signs 03/01/25 09:03 Height 5 ft 1 in Weight 158 lb 8 oz BMI 29.9 BP 124/70 Blood Pressure Location Rt brachial Position Sitting Respiration 16 Pulse 68 Pulse Source Pulse Oximeter Temp 97.7 F Temp Source Temporal Artery Scan Pulse Oximetry (%) 97 Oxygen Delivery Method Room Air Intake Visit Reasons: med follow up Intake Note: Toney presents in the office for a medication follow up. [facility] Specialist Required: No Is last menstrual period known: No Post menopausal: Yes Patient : No Allergies amoxicillin Adverse Reaction (Mild, Verified 03/01/25 09:02) Nausea Medication List - Last Reconciled 03/01/25 by CARI Tovar allopurinol 100 mg PO DAILY blood sugar diagnostic ([employer] Verio test strips) Use as directed to check blood glucose once daily. blood-glucose meter ([employer] Verio Flex Meter) Use as directed to check blood glucose once daily for Type II diabetes mellitus. cholecalciferol (vitamin D3) 25 mcg PO DAILY cyanocobalamin (vitamin B-12) 1,000 mcg PO .every other day ezetimibe 10 mg PO DAILY lancets ([employer] Delica Plus Lancet) Use as directed to check blood glucose once daily. metformin 500 mg PO BID metoprolol succinate ER 100 mg PO DAILY potassium citrate ER 10 mEq PO BID rosuvastatin 40 mg PO DAILY valsartan 320 mg PO DAILY Tobacco use date assessed: 03/01/25 Dental Screening Dental Screen Date: 03/01/25 Did you have a dental visit in the last 12 months?: No Did you have a dental problem in the last 6 months where you did not have access to dental care?: No Was dental information given to patient?: Patient declined HPI HPI Comments History of Present Illness Details 79-year-old female with a past medical history of type 2 diabetes, nephrolithiasis, CKD stage 3, hyperlipidemia, hypertension and obesity presents for follow up. Patient was evaluated by [facility] to review her CT scan and weight loss. The CT scan from September 2024 showed bile duct pneumobilia. She had a follow up appointment a couple days ago and reports no further testing was recommended. It was determined she does not need a colonoscopy/EGD. Weight has been table the past 3 months. Denies abdominal pain, nausea, vomiting, diarrhea and blood in stools. She has controlled type 2 diabetes. She is taking metformin 500 mg twice daily. All BG readings from her log are within target range. She checks once daily. Her eye exam is scheduled in March 2025. Hyperlipidemia is treated with rosuvastatin 40 mg daily and Zetia 10 mg daily. Hypercalcemia resolved after discontinuing supplements [id number]. B12 was high so she is taking this every other day now. CKD stage 3, microalbuminuria-Dr. Gómez. She has another imaging study in April 2025 for her kidneys. History of Nephrolithiasis. She is on allopurinol and potassium citrate. Hypertension is treated with valsartan and metoprolol. She had an echocardiogram on 08/10/2024 demonstrating left ventricular ejection fraction 55-60%, trace pulmonic regurgitation and mild tricuspid valve regurgitation. Defers mammogram and bone density test today. She will do them at the next appointment. ROS: Constitutional: Denies fevers, chills, night sweats and fatigue. Eyes: No vision changes, blurry vision, double vision, eye pain, eye redness, eye discharge. Respiratory: No shortness of breath, cough or sputum production. Cardiovascular: No chest pain, chest pressure or chest discomfort. No palpitations or pedal edema. Gastrointestinal: No nausea, vomiting, blood in stools or abdominal pain. See HPI. Genitourinary: No dysuria, hematuria, urinary frequency. Neurologic: No headache, dizziness, syncope Hematologic/Lymphatics: No bleeding or bruising. No painful lymph nodes. Physical exam: Constitutional: Alert, in no distress. Neck: Supple, Full range of motion. No lymphadenopathy. No palpable thyroid masses. Respiratory: Clear to auscultation. Cardiovascular: S1 S2 regular. 2/6 systolic murmur Extremities: Warm and well perfused. 1+ bilateral lower extremity edema. Psychiatric: Normal mood and affect Feet: declined exam. [facility] Medical History (Updated 03/02/25 @ 14:13 by CARI Tovar) Hypercalcemia Microalbuminuria Change in stool Mild tricuspid regurgitation Weight loss Obesity Hyperlipidemia Essential hypertension Heart murmur CKD stage 3 due to type 2 diabetes mellitus Type II diabetes mellitus Kidney disease Diabetes High cholesterol High blood pressure Kidney stones Surgical History (Updated 06/29/24 @ 15:56 by FRANCESCA Adam) H/O: hysterectomy Family History Father High blood pressure Cardiovascular disease Sister Colon cancer Social History (Updated 03/01/25 @ 09:03 by Anny Doe CMA) Housing: House Alcohol intake: never Patient Tobacco Use Status: Never used Tobacco e-Cigarette/Vaping Use: Never Used Second Hand Smoke Exposure: No service: No Current occupational status: retired Cognitive needs: No Hearing needs: No Vision needs: Yes Questionnaire Thrive Questionnaire Date Thrive assessed: 06/29/24 I am a: Patient What is your living situation today?: I have a steady place to live Within the past 12 months, did the food you bought not last and you didn't have the money to get more?: Sometimes True Within the past 12 months, did you worry whether your food would run out before you got money to buy more?: I choose not to answer this question Do you have trouble paying for medicines?: No Do you have trouble getting transportation to medical appointments?: No Do you have trouble paying your heating and electricity bill?: Yes Do you have trouble taking care of your child, family member or friend?: No Do you have trouble with day-to-day activities such as bathing, preparing meals, shopping, managing finances, etc.?: No Are you currently unemployed and looking for a job?: No Are you interested in more education?: No Please select the resources that you would like help with: None Currently or been in a relationship where the following occur: No concerns reported THRIVE Score: 2 ERIC-7 AMB Questionnaire ERIC-7 Date ERIC - 7 assessed: 06/29/24 Source: Developed by Drs. Prasanna Myles, Irasema Muro, Jethro Barbour and colleagues, with an educational mariela from [employer]. Physical exam (Primary Care) Vital Signs: Last Vital Signs Temp 97.7 F 03/01/25 09:03 Pulse 68 03/01/25 09:03 Resp 16 03/01/25 09:03 BP 124/70 03/01/25 09:03 Pulse Ox 97 03/01/25 09:03 Oxygen Delivery Method Room Air 03/01/25 09:03 BMI result Body Mass Index 29.9 Tobacco/Smoking Status: Tobacco use Status Tobacco use date assessed 03/01/25 03/01/25 09:06 Patient Tobacco Use Status Never used Tobacco 03/01/25 09:03 e-Cigarette/Vaping Use Never Used 03/01/25 09:03 Thrive Assessment: Date of Thrive Assessment Date Thrive assessed 06/29/24 03/01/25 09:00 Currently or been in a relationship where the following occur: No concerns reported Coding Level of Care Code Est Pt Level 4 (33593) Add On Problem Visit Only Diagnoses Weight loss R63.4 Type II diabetes mellitus E11.9 Diabetes mellitus complication detail: with chronic kidney disease Diabetes mellitus complication status: with kidney complications Diabetes mellitus care home insulin use: without care home use CKD stage 3 due to type 2 diabetes mellitus E11.22; N18.30 Essential hypertension I10 Other hyperlipidemia E78.49 Hyperlipidemia type: other hyperlipidemia Mild tricuspid regurgitation I07.1 Assessment & Plan Assessment & Plan (1) Weight loss: Code(s): R63.4 - Abnormal weight loss Category: Medical Plan: Weight stabilized. CT scan did not show evidence of malignancy however there was bile duct pneumobilia. She saw Gastroenterology and had a follow up. (2) Type II diabetes mellitus: Code(s): E11.9 - Type 2 diabetes mellitus without complications Category: Medical Qualifiers: Diabetes mellitus complication detail: with chronic kidney disease Diabetes mellitus complication status: with kidney complications Diabetes mellitus local [employer] insulin use: without care home use Plan: Continue home glucose monitoring. Continue metformin 500 mg twice daily for now. She would be a good candidate for Jardiance given renal complications, but she declined this again today. If renal function declines I will revisit this with her. (3) CKD stage 3 due to type 2 diabetes mellitus: Code(s): E11.22 - Type 2 diabetes mellitus with diabetic chronic kidney disease; N18.30 - Chronic kidney disease, stage 3 unspecified Category: Medical Plan: Stable. Followed by Nephrology. Continue valsartan. Declined Jardiance. (4) Essential hypertension: Code(s): I10 - Essential (primary) hypertension Category: Medical Plan: Continue valsartan and metoprolol. Recommended low-sodium diet and avoidance of caffeine. (5) Hyperlipidemia: Code(s): E78.5 - Hyperlipidemia, unspecified Category: Medical Qualifiers: Hyperlipidemia type: other hyperlipidemia Qualified Code(s): E78.49 - Other hyperlipidemia Plan: Continue rosuvastatin and Zetia. (6) Mild tricuspid regurgitation: Code(s): I07.1 - Rheumatic tricuspid insufficiency Category: Medical Plan: Plan to repeat echocardiogram in 1 year or sooner if the patient develops concerning symptoms. Plan Follow up in 3 months. Orders: Orders Microalbumin, Random (w Creat) 03/01/25 E11.9 - Type 2 diabetes mellitus without complications, I10 - Essential (primary) hypertension Vitamin B12 03/01/25 I10 - Essential (primary) hypertension, Z91.89 - Other specified personal risk factors, not elsewhere classified Hemoglobin A1c 03/01/25 I10 - Essential (primary) hypertension, R73.9 - Hyperglycemia, unspecified Lipid Panel 03/01/25 E78.5 - Hyperlipidemia, unspecified, I10 - Essential (primary) hypertension Vitamin D 25-OH (D2 and D3) 03/01/25 I10 - Essential (primary) hypertension Basic Metabolic Panel 03/01/25 E11.9 - Type 2 diabetes mellitus without complications
[2025-03-01 09:03] VITALS: BP 124/70; PULSE 68; RESP 16; TEMP 36.5; O2SAT 97; BMI 29.9
== END 2025-03-01 09:30 | disposition home or self-care (01) ==
LOC: HO.HMCFM 08:52
PROVIDERS: PCP Physician Assistant Medical; Visit Provider Physician Assistant Medical
DX: E11.22 Type 2 diabetes mellitus with diabetic chronic kidney disease (principal); N18.30 Chronic kidney disease, stage 3 unspecified; R63.4 Abnormal weight loss; I10 Essential (primary) hypertension; E78.49 Other hyperlipidemia; I07.1 Rheumatic tricuspid insufficiency